=== PATIENT | female | born 1975 | race Caucasian/White ===

== ENCOUNTER → 2019-04-01 | Outpatient (CLI) | payer BC ==
--- NOTE | 2019-04-01 10:39 | KCIC ---
MRI Cervical Spine Without Contrast History: Cervical radiculopathy, previous surgeries, ACDF 6 weeks ago, new pain Technique: Multiplanar, multi sequential noncontrast MR imaging was performed of the cervical spine. Comparison: October 13, 2018 MRI cervical spine exam Findings: There is some motion degradation. There has been anterior cervical fusion at C4, C5, C6, previously anterior fusion hardware at C5-6. Exam does not accurately evaluate integrity of hardware. There is appearance of increased T2, T1, and STIR signal within the C4-5 intervertebral disc space although limited characterization due to artifact created by the hardware. Cervical cord caliber is within normal limits without expansile signal abnormality. Cervical vertebral body stature is similar. There is no localized prevertebral soft tissue fluid collection. There is minimal grade 1 anterior spondylolisthesis C3-4 now present. There is again moderate to severe C6-7 degenerative disc disease, mild disc desiccation at C3-4. C2-C3: Spinal canal and the neural foramina are adequate. C3-C4: There is fairly severe left facet degenerative change. There is negligible disc osteophyte complex and bulge. Central canal is minimally narrowed about 9 mm. Right neural foramen is adequate, suspected [id number] narrowing of the left neural foramen primarily from posteriorly by facet. C4-C5: There is again some signal change in the intervertebral disc space. Central canal is adequate about 11 mm. Accurate evaluation of the neural foramina is limited due to motion degradation and artifact from hardware, probable [id number] left greater than right neural foramina compromise. There is apparently nonspecific fluid signal associated with the left C4-5 facet articulation. C5-C6: Central canal is adequate about 13 mm, limited evaluation of the left lateral recess due to artifact from hardware. Right neural foramen is adequate. Left neural foramen is also probably adequate although limited evaluation due to artifact hardware. C6-C7: There is disc osteophyte complex and bulge, central canal minimally narrowed about 9 mm. There is uncovertebral degenerative change. Accurate evaluation of neural foramen is limited due to motion and artifact from hardware, probable moderate to severe left and at least mild right neural foramina compromise. C7-T1: Spinal canal and neural foramina are adequate. Impression: 1. There is anterior cervical fusion hardware C4-C6, associated artifact from hardware. There is appearance of nonspecific increased signal in the C4-5 intervertebral disc space although limited characterization due to hardware artifact, consideration of somewhat complex fluid given signal features although may be related to interbody graft. 2. There is mild spinal stenosis C6-7 and C3-4. 3. Facet and uncovertebral degenerative change contributes to neural foramina compromise as stated, more significant narrowing on the left at C6-7, lesser degree of narrowing bilaterally at C4-5 and on the left at C3-C4, also at least mild narrowing on the right at C6-7. 4. There is C6-7 degenerative disc disease. There is mild spondylosis C3-4 and C6-7. There is very minimal grade 1 anterior spondylolisthesis at C3-4. 5. There is nonspecific fluid associated with the left C4-5 facet articulation of uncertain sterility. Electronically signed by: Joseph Chery MD (04/01/2019 10:36 AM) [id number]
== END | disposition home or self-care (01) ==
LOC: KCIC MRI 08:35
DX: M50.123 Cervical disc disorder at C6-C7 level with radiculopathy (principal); M47.22 Other spondylosis with radiculopathy, cervical region; M48.02 Spinal stenosis, cervical region; M43.12 Spondylolisthesis, cervical region; M25.78 Osteophyte, vertebrae
CPT/HCPCS: 72141